=== PATIENT | female | born 1950 | race Caucasian/White ===

== ENCOUNTER 2018-07-27 06:52 | Day surgery (SDC) | payer BC, OTHER ==
[2018-07-25 15:36] VITALS: BMI 27.4
[2018-07-27 07:42] LABS: INR 0.97 (0.83-1.09); PROTHROMBIN TIME (PATIENT) 11.4 SEC (9.7-13.0)
[2018-07-27 07:45] LABS: ACTIVATED PTT 24.9 SECONDS (25.2-36.5)
[2018-07-27] MEDS ORDERED: MIDAZOLAM HCL 2 MG/2 ML SINGLE DOSE VIAL ONE ×2 (07:49)
[2018-07-27] MEDS ORDERED: ROPIVACAINE HCL 0.5% 30ML VIAL ONE (07:51)
[2018-07-27] MEDS ORDERED: DEXAMETHASONE SOD PHOSPHATE/PF 10 MG/ML SDV ONE (07:51)
[2018-07-27] MEDS ORDERED: oxyCODONE HCL 5 MG TABLET PO PRN ×2 (08:01)
[2018-07-27] MEDS ORDERED: ONDANSETRON 4 MG/2 ML VIAL IVPUSH PRN (08:01)
[2018-07-27] MEDS ORDERED: LACTATED RINGERS SOLUTION 1,000 ML IV SCH (08:15)
--- NOTE | 2018-07-27 08:35 | HP ---
Satellite [facility] - Chief Complaint Chief Complaint: left shoulder pain - Past Medical History Allergies/Adverse Reactions: Allergies Allergy/AdvReac Type Severity Reaction Status Date / Time atorvastatin Allergy Intermediate fast Verified 12/21/14 06:53 heartbeat amoxicillin Allergy Verified 07/27/18 07:37 rosuvastatin Allergy "FAST Verified 12/20/14 17:07 HEARTBEAT" - Current Medications Current Medications: Home Medications Medication Instructions Recorded Amlodipine Besylate/Benazepril 1 each PO DAILY 12/20/14 [Lotrel 5-10 mg Capsule] Estrogen,Con/M-Progest Acet 1 each PO DAILY 12/20/14 [Prempro 0.3 mg-1.5 mg Tablet] Multivitamins [Multivit ([facility] 1 tab PO DAILY 12/21/14 Formulary)] Levothyroxine [Synthroid -] 88 mcg PO DAILY 07/25/18 Rosuvastatin Calcium [Crestor] 20 mg PO DAILY 07/25/18 Oxycodone HCl/Acetaminophen 1 - 2 tab PO Q6H #30 tab MDD 6 07/27/18 [Percocet 5-325 mg Tablet] Satellite Physical Exam - Physical Examination Vital Signs: Vital Signs Period Temp Pulse Resp BP Sys/Galloway Pulse Ox Last 24 Hr 98.4 F 84 20 148/72 100 General Appearance: Well Nourished, Well Developed, Alert & Oriented x3 ENT: Clear Lung: Normal air movement Heart: Regular rate & rhythm Extremities: Other (left shoulder- + ttp, decr rom, + neer, + ornelas, + empty can, nvi MRI + rct) Neurological: Intact, Alert, Oriented Satellite Impression/Plan - Impression/Plan Impression: left shoulder rct Operative Procedure: left shoulder arthroscopy with RCXiomara, JESSE, DCE Date to be Performed: 07/27/18
[2018-07-27] MEDS ORDERED: PROPOFOL 20 ML ONE (09:00)
[2018-07-27] MEDS ORDERED: ROCURONIUM BROMIDE 50 MG/5 ML VIAL ONE (09:00)
[2018-07-27] MEDS ORDERED: ceFAZolin SODIUM 1 GM VIAL ONE (09:22)
[2018-07-27] MEDS ORDERED: ceFAZolin SODIUM 1 GM VIAL IVPB ONE (09:30)
[2018-07-27] MEDS ORDERED: NEOSTIGMINE METHYLSULFATE 0.5 MG/ML - 10 ML MDV ONE (10:28)
[2018-07-27] MEDS ORDERED: GLYCOPYRROLATE 0.2 MG/1 ML VIAL ONE (10:28)
--- NOTE | 2018-07-27 10:41 | OP ---
Operative Note - Note: Operative Date: 07/27/18 ([facility]) Pre-Operative Diagnosis: left shoulder rct Operation: left shoulder arthroscopy with RCR, SAD, DCE Implants: arthrex speedbridge, 1 swivelock Post-Operative Diagnosis: Same as Pre-op Surgeon: Joby Strange Neon Sign Servicer: Bill Hill Anesthesiologist/SENIOR AUDIT MANAGER: Frances Berrios Anesthesia: General, Local Specimens Removed: shavings Estimated Blood Loss (mls): 5 Operative Report Dictated: Yes
[2018-07-27] MEDS ORDERED: MEPERIDINE HCL CARPU-JECT 25 MG/1 ML DISP.SYRIN ONE (11:03)
[2018-07-27] MEDS ORDERED: MEPERIDINE HCL CARPU-JECT 25 MG/1 ML DISP.SYRIN IVPUSH PRN (11:13)
--- NOTE | 2018-07-27 11:40 | OP ---
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 POSTOPERATIVE DIAGNOSIS: Left rotator cuff tear and degenerative joint disease of the acromioclavicular joint. PROCEDURE: Arthroscopy, left shoulder, with subacromial decompression, distal clavicle excision, and arthroscopic left rotator cuff repair. SURGICAL ATTENDING: Joby Strange MD SECTION BEAMER: LEROY Espinosa ANESTHESIA: Regional and general. CLOSURE: SpeedBridge anchors and SwiveLock for rotator cuff, 3-0 nylon for skin. ESTIMATED BLOOD LOSS: Negligible. COMPLICATIONS: None. CONDITION: To recovery room in stable condition. DESCRIPTION OF OPERATIVE PROCEDURE: Patient was taken to the operating room on July 27, 2018. A scalene block as well as general anesthesia was administered by the anesthesiologist. IV Kefzol was administered prophylactically prior to the case. Patient was placed in the supine position. The left shoulder was prepped and draped in the usual sterile fashion. First, a diagnostic arthroscopy of the glenohumeral joint was performed. A posterior portal was made 2 fingerbreadths below the acromion with a 15 blade followed by a blunt trocar. The scope was placed in the shoulder, and a circumferential examination of the glenohumeral joint revealed the following: Intact glenoid and humeral head articular cartilage, intact labrum circumferentially. No loose bodies in the axillary pouch. The biceps tendon was frayed, but was intact to its insertion. Subscapularis was intact to its insertion. There was a large rotator cuff tear seen from the articular surface. The fluid was drained from the shoulder, and the trocar was removed. The posterior trocar was redirected in the subacromial space. The accessory lateral portal was then made using 15 blade followed by a blunt trocar, and anterior portal was made at the AC joint. The subacromial space was cleaned of all bursal tissue by using the ArthroCare device. Spur on the undersurface of the acromion was debrided up to the appropriate level gaining sufficient height for the acromion. As patient had significant DJD of the AC joint, the distal clavicle was excised. A john was placed through the AC joint and was used to john off the distal clavicle. Direct visualization in the AC joint revealed that the entire distal clavicle, even the superior portion, was taken. The lateral edge of the acromion was burred as well to make a smooth transition zone. Next, our attention was directed to the rotator cuff. Shaver was used to clean off the bed of the greater tuberosity, and the primitive attempt at healing of the body of the rotator cuff exposing a large rotator cuff tear. The john was used to stimulate bleeding bone on the greater tuberosity. Two anchors were placed in the articular margin, one anteriorly and one posteriorly, and these anchors were preloaded with FiberTape sutures. They were passed in a fanned out position through the rotator cuff and docked in the anterior portal. One anterior limb and one posterior limb were fixated to the greater tuberosity posteriorly, and one anterior limb and one posterior limb were fixated to the greater tuberosity more anteriorly, matting down the rotator cuff to the greater tuberosity. There was a small flap anteriorly, which needed adjuvant fixation. FiberWire suture was placed using the Scorpio device, and then, a SwiveLock was then deployed more laterally fixating that portion of the rotator cuff, as well. All these sutures were cut flush with the bone. Post-fixation, shoulder was taken through a range of motion, had excellent repair and no undue tightness and no impingement on the subacromial space. The fluid was drained. The portals were closed using 3-0 nylon and a sterile pressure dressing, followed by a shoulder immobilizer was applied. Patient awakened from anesthesia and transferred to recovery in stable condition. No complications. Estimated blood loss negligible. Mireya [id number]
[2018-07-27 12:52] VITALS: TEMP 97.9
[2018-07-27 15:34] VITALS: BP 140/88; PULSE 88
--- NOTE | 2018-07-29 17:28 | PATH ---
Surgical Pathology Report Patient Name: MARÍA PHELPS [facility]. Rec. #: [id number] /Age/Gender: 1950 (Age: 67) / F Account: [id number] Location: [facility] [place] SURGICAL Taken: 07/27/2018 Received: 07/27/2018 Reported: 07/29/2018 Physicians: Joby Strange M.D. Specimen(s) Received LEFT SHOULDER SHAVINGS Clinical History Left shoulder tear Final Diagnosis SHOULDER SHAVINGS, LEFT, ARTHROSCOPY, DISTAL CLAVICLE EXCISION, REPAIR OF ROTATOR CUFF: FRAGMENTS OF BENIGN CARTILAGE, SYNOVIUM, BONE, DENSE FIBROCONNECTIVE TISSUE, ADIPOSE TISSUE, AND SKELETAL MUSCLE. Electronically Signed My Langley M.D. Gross Description Received in formalin, labeled "left shoulder shavings," is a 5.0 x 4.3 x 0.8 cm. aggregate of alvarez-yellow soft tissue fragments. A procurement representative portion is submitted in one cassette. /07/28/2018 [facility]07/28/2018
== END 2018-07-27 15:30 | disposition home or self-care (01) ==
LOC: JASU-SURG 06:52
PROVIDERS: ATTEND Orthopaedic Surgery
PROC: 0PBB4ZZ Excision of Left Clavicle, Percutaneous Endoscopic Approach (ICD-10-PCS; 2018-07-27)
PROC: 0RNK4ZZ Release Left Shoulder Joint, Percutaneous Endoscopic Approach (ICD-10-PCS; principal; 2018-07-27 09:00)
PROC: 0LQ24ZZ Repair Left Shoulder Tendon, Percutaneous Endoscopic Approach (ICD-10-PCS; 2018-07-27 09:00)
DX: M75.102 Unspecified rotator cuff tear or rupture of left shoulder, not specified as traumatic (principal); M19.012 Primary osteoarthritis, left shoulder
CPT/HCPCS: 36415; 84703; 85610; 85730; 88304-TC; 94760

== ENCOUNTER 2019-11-22 06:22 | Day surgery (SDC) | payer BC, OTHER ==
[2019-11-21 15:42] VITALS: BMI 29.0
[2019-11-22] MEDS ORDERED: DEXAMETHASONE SOD PHOSPHATE 4 MG/1 ML VIAL ONE (07:20)
[2019-11-22] MEDS ORDERED: PROPOFOL 20 ML ONE (07:20)
[2019-11-22] MEDS ORDERED: LIDOCAINE HCL/PF 2% SDV 5ML VIAL ONE (07:20)
[2019-11-22] MEDS ORDERED: MIDAZOLAM HCL 2 MG/2 ML SINGLE DOSE VIAL ONE (07:20)
[2019-11-22] MEDS ORDERED: SUCCINYLCHOLINE CHLORIDE 200 MG/10 ML SYRINGE ONE (07:20)
[2019-11-22] MEDS ORDERED: LIDOCAINE HCL 1% EPINEPHRINE 1:200,000 30 ML VIAL (PF) ONE (07:45)
--- NOTE | 2019-11-22 07:54 | HP ---
Satellite [facility] - Chief Complaint Chief Complaint: left knee pain - Past Medical History Allergies/Adverse Reactions: Allergies Allergy/AdvReac Type Severity Reaction Status Date / Time atorvastatin Allergy Intermediate fast Verified 11/22/19 07:03 heartbeat amoxicillin Allergy "HIVES" Verified 11/22/19 07:03 rosuvastatin Allergy "FAST Verified 11/22/19 07:03 HEARTBEAT" - Current Medications Current Medications: Home Medications Medication Instructions Recorded Amlodipine Besylate/Benazepril 1 each PO DAILY 12/20/14 [Lotrel 5-10 mg Capsule] Levothyroxine [Synthroid -] 88 mcg PO DAILY 07/25/18 Rosuvastatin Calcium [Crestor] 20 mg PO DAILY 07/25/18 Oxycodone HCl/Acetaminophen 1 tab PO Q6H #15 tablet MDD 4 11/22/19 [Percocet 5-325 mg Tablet] Satellite Physical Exam - Physical Examination Vital Signs: Vital Signs Period Temp Pulse Resp BP Sys/Galloway Pulse Ox Last 24 Hr 97.7 F 78 18 114/80 97 General Appearance: Well Nourished, Well Developed, Alert & Oriented x3 ENT: Clear Lung: Normal air movement Extremities: Other (left knee- + swelling, + ttp, decr rom, + mcmurrays, nvi) Neurological: Intact, Alert, Oriented Satellite Impression/Plan - Impression/Plan Impression: left knee internal derangement Operative Procedure: left knee arthroscopy Date to be Performed: 11/22/19
[2019-11-22] MEDS ORDERED: EPHEDRINE SULFATE/0.9% NACL/PF 50 MG/10 ML SYRINGE NR ONE (08:21)
[2019-11-22] MEDS ORDERED: LIDOCAINE HCL 0.5% EPINEPHRINE 1:200,000 50 ML VIAL IJ ONE (08:24)
[2019-11-22] MEDS ORDERED: BUPIVACAINE HCL/PF 0.5% (5 MG/ML) 30 ML VIAL IJ ONE ×2 (08:36→08:42)
[2019-11-22] MEDS ORDERED: ONDANSETRON 4 MG/2 ML VIAL IVPUSH PRN (08:57)
[2019-11-22] MEDS ORDERED: oxyCODONE HCL 5 MG TABLET PO PRN (08:57)
[2019-11-22] MEDS ORDERED: LACTATED RINGERS SOLUTION 1,000 ML IV SCH (09:00)
--- NOTE | 2019-11-22 10:38 | OP ---
Operative Note - Note: Operative Date: 11/22/19 ([facility]) Pre-Operative Diagnosis: left knee internal derangement Operation: left knee arthroscopy with PMM Post-Operative Diagnosis: Same as Pre-op Surgeon: Joby Strange Anesthesiologist/ASSEMBLER LATCHES [employer] SPRINGS: Gris Rizvi Anesthesia: General, Local Specimens Removed: shavings Estimated Blood Loss (mls): 5
[2019-11-22 12:23] VITALS: BP 113/65; PULSE 86; TEMP 98.1
--- NOTE | 2019-11-22 15:53 | OP ---
DATE OF OPERATION: 11/22/2019 PREOPERATIVE DIAGNOSIS: Internal derangement, left knee. POSTOPERATIVE DIAGNOSIS: Internal derangement, left knee. PROCEDURE: Arthroscopy, left knee; partial medial meniscectomy. SURGICAL ATTENDING: Joby Strange MD ANESTHESIA: General with LMA. CLOSURE: 4-0 nylon. COMPLICATIONS: None. CONDITION: To recovery room in stable condition. DESCRIPTION OF OPERATIVE PROCEDURE: Patient was taken to the operating room on November 22, 2019. General anesthesia with LMA was administered by the anesthesiologist. Left lower extremity was prepped and draped in the usual sterile fashion. The medial and lateral and infrapatellar portal sites were infiltrated with 1% Xylocaine with epinephrine. Both portals were then made with 15 blade followed by blunt trocars. The scope trocar was placed in the lateral inferolateral portal up in suprapatellar pouch. The knee was inflated then with a cocktail of 10 mL of 1% Xylocaine and 10 mL of 0.5% Marcaine and 20 mL of arthroscopic saline. After allowing the anesthetic to sit in the knee for a few minutes, the procedure was performed. The pouch was visualized to be clean. The medial and lateral gutters were visualized to be clean. The undersurface of the patella and trochlea were basically intact. With valgus stress on the knee, the medial compartment was entered. The medial meniscus was found to have a complex tear of its posterior horn. This was debrided back to smooth and stable meniscal tissue using meniscal biter and arthroscopic shaver. The medial femoral condyle was run and found to have slight "crabmeat" which was debrided, and slight changes on the medial tibial plateau as well but otherwise for the most part it was mostly intact. At 90 degrees, the ACL was visualized, probed, found to be intact. In the [id number] position, the lateral compartment was entered. Lateral meniscus was visualized and probed, found to be intact. The lateral femoral condyle was run and found to be intact, as was lateral tibial plateau. The knee was irrigated with copious amounts of irrigation. The portals were closed with 4-0 nylon. Prior to closure, 20 mL of 0.5% Marcaine was infused through the trocar for postoperative analgesia. Sterile pressure dressing was placed over the knee. Patient awakened from anesthesia and transferred to recovery room in stable condition. No complications. Estimated blood loss negligible. JOBY STRANGE M.D. [id number]
--- NOTE | 2019-11-23 16:31 | PATH ---
Surgical Pathology Report Patient Name: MARÍA PHELPS [facility]. Rec. #: [id number] /Age/Gender: 1950 (Age: 69) / F Account: [id number] Location: [facility] SURGICAL Taken: 11/22/2019 Received: 11/22/2019 Reported: 11/23/2019 Physicians: Joby Strange M.D. Specimen(s) Received LEFT KNEE SHAVINGS Clinical History Left knee tear Final Diagnosis KNEE SHAVINGS, LEFT, ARTHROSCOPY: FRAGMENTS OF CARTILAGE, DENSE FIBROCONNECTIVE TISSUE, ADIPOSE TISSUE, AND SYNOVIUM. Electronically Signed My Langley M.D. Gross Description Received in formalin, labeled "left knee shavings," is a 5.8 x 4.4 x 0.5 cm. aggregate of alvarez-yellow soft tissue fragments. A fundraising sale representative portion is submitted in one cassette. /11/22/2019 [place]/11/22/2019
== END 2019-11-22 11:30 | disposition home or self-care (01) ==
LOC: JASU-SURG 06:22
PROVIDERS: ATTEND Orthopaedic Surgery
PROC: 0SBD4ZZ Excision of Left Knee Joint, Percutaneous Endoscopic Approach (ICD-10-PCS; principal; 2019-11-22 08:00)
DX: M23.332 Other meniscus derangements, other medial meniscus, left knee (principal)
CPT/HCPCS: 94760

== ENCOUNTER 2021-05-15 04:43 | Day surgery (SDC) | payer BC, OTHER ==
[2021-05-14 09:24] VITALS: BMI 30.2
[2021-05-15] MEDS ORDERED: CHONDROITIN SU A/HYALUR SOD 1 KIT ONE ×2 (07:05→10:03)
[2021-05-15] MEDS ORDERED: ACETAMINOPHEN 325 MG TABLET (FP) PO PRN (07:12)
[2021-05-15] MEDS ORDERED: CIPROFLOXACIN 0.3% EYE DROPS 5 ML BOTTLE ONE (07:38)
[2021-05-15] MEDS ORDERED: TROPICAMIDE 1% OPHTH SOLN 15 ML BOTTLE ONE (07:38)
[2021-05-15] MEDS: CIPROFLOXACIN HCL 0.3% OPHTH 2.5ML BOTTLE OP SCH ×3 (07:45→08:15)
[2021-05-15] MEDS: PHENYLEPHRINE 2.5% OPHTH SOLN 15 ML BOTTLE OP SCH ×3 (08:00→08:10)
[2021-05-15] MEDS: DICLOFENAC SODIUM 0.1% OPHTHALMIC 2.5ML BOTTLE ONE ×3 (08:00→08:10)
[2021-05-15] MEDS: KETOROLAC TROMETHAMINE 0.5% EYE DROP 1 DROP DROPS OP SCH ×3 (08:00→08:10)
[2021-05-15] MEDS: TROPICAMIDE 1% OPHTH SOLN 15 ML BOTTLE OP SCH ×3 (08:00→08:10)
[2021-05-15] MEDS ORDERED: TETRACAINE 0.5% OPHTH SOLN 2 ML BOTTLE OD ONE ×2 (08:08→09:46)
[2021-05-15] MEDS ORDERED: LIDOCAINE HCL 1% PRESERVATIVE FREE - 30ML VIAL IO ONE ×2 (08:09→09:57)
[2021-05-15] MEDS ORDERED: POVIDONE-IODINE 5% OPHTHALMIC PREP 30 ML SOLUTION OD ONE ×2 (08:09→09:47)
[2021-05-15] MEDS ORDERED: BSS (NA/CA/MG/K) BALANCED SALT SOLUTION OPHTH SOLN 15 ML BOTTLE OD ONE ×2 (08:10→09:59)
[2021-05-15] MEDS ORDERED: CHONDROITIN SU A/HYALUR SOD 1 KIT IO ONE ×2 (08:11→09:59)
[2021-05-15] MEDS ORDERED: EPINEPHrine/PF 1 MG/1 ML (1:1,000) AMPULE SQ ONE ×2 (08:11→10:05)
[2021-05-15] MEDS ORDERED: TOBRAMYCIN/DEXAMETHASONE OPHTH. OINTMENT 1 TUBE OD ONE ×2 (09:33→10:18)
[2021-05-15] MEDS ORDERED: MIDAZOLAM HCL 2 MG/2 ML SINGLE DOSE VIAL ONE (09:48)
[2021-05-15] MEDS ORDERED: ONDANSETRON 4 MG/2 ML VIAL IVPUSH PRN (10:29)
[2021-05-15] MEDS ORDERED: LACTATED RINGERS SOLUTION 1,000 ML IV SCH (10:30)
[2021-05-15 11:00] VITALS: PULSE 71
[2021-05-15 11:40] VITALS: BP 120/70; TEMP 97.7
== END 2021-05-15 11:30 | disposition home or self-care (01) ==
LOC: JASU-SURG 04:43
PROVIDERS: ATTEND Ophthalmology
PROC: 08RJ3JZ Replacement of Right Lens with Synthetic Substitute, Percutaneous Approach (ICD-10-PCS; principal; 2021-05-15 09:30)
DX: H25.11 Age-related nuclear cataract, right eye (principal)

== ENCOUNTER 2022-03-19 20:35 | Observation (INO) | payer OTHER, BC ==
[2022-03-19] MEDS ORDERED: ACETAMINOPHEN 1000 MG/100 ML BAG IVPB ONE (21:22)
[2022-03-19] MEDS ORDERED: LACTATED RINGERS SOLUTION 1000 ML INFUS.BAG IV ONE (21:22)
[2022-03-19] MEDS ORDERED: ACETAMINOPHEN INJECTION 100 ML IVPB ONE (21:48)
[2022-03-19 22:05] LABS: BASO % 0.7 % (0-2.0); EOS % 5.3 % (0-4.5); HEMATOCRIT 39.5 % (32.4-45.2); HEMOGLOBIN 13.8 GM/dL (10.7-15.3); LYMPH % 36.7 % (8-40); MCH 31.8 pg (25.7-33.7); MCHC 34.9 g/dl (32.0-36.0); MEAN CELL VOLUME 91.2 fl (80-96); MEAN PLT VOLUME 7.9 fl (7.5-11.1); MONO % 7.4 % (3.8-10.2); NEUT % 49.9 % (42.8-82.8); PLATELET COUNT 190 10^3/uL (134-434); RBC 4.34 M/mm3 (3.60-5.2); RDW 12.7 % (11.6-15.6); WHITE BLOOD COUNT 7.2 K/mm3 (4.0-10.0)
[2022-03-19 22:11] LABS: INR 0.96 (0.83-1.09)
[2022-03-19 22:27] LABS: CHLORIDE 103 mmol/L (98-107); SODIUM 140 mmol/L (136-145)
[2022-03-19 22:29] LABS: CALCIUM 9.5 mg/dL (8.5-10.1)
[2022-03-19 22:30] LABS: ALBUMIN 4.2 g/dl (3.4-5.0); ANION GAP 8 MMOL/L (8-16); BLOOD UREA NITROGEN 17.2 mg/dL (7-18); CO2 29 mmol/L (21-32); GLUCOSE,RANDOM 118 mg/dL (74-106)
[2022-03-19 22:33] LABS: CREATININE 1.1 mg/dL (0.55-1.3); SGOT/AST 24 U/L (15-37); SGPT/ALT 24 U/L (13-61)
[2022-03-19 22:35] LABS: BILIRUBIN,TOTAL 0.4 mg/dL (0.2-1); TOT PROT 7.5 g/dl (6.4-8.2)
[2022-03-19 22:36] LABS: ALK PHOS 70 U/L (45-117)
[2022-03-19] MEDS ORDERED: ASPIRIN 81 MG CHEWABLE TABLETS PO ONE (23:08)
[2022-03-19] MEDS ORDERED: ASPIRIN 81 MG CHEWABLE TABLETS ONE (23:28)
[2022-03-20] MEDS: LEVOTHYROXINE NA 88 MCG TABLET (FP) PO SCH (07:05)
[2022-03-20] MEDS: ISOSORBIDE MONONITRATE 30 MG TAB.SR.24H (FP) PO SCH (09:57)
[2022-03-20] MEDS: CLOPIDOGREL BISULFATE 75 MG TABLET (FP) PO SCH (09:58)
[2022-03-20] MEDS: LISINOPRIL 10 MG TABLET PO SCH (09:58)
[2022-03-20] MEDS: ASPIRIN 81 MG CHEWABLE TABLETS PO SCH (09:58)
[2022-03-20] MEDS: amLODIPine BESYLATE 5 MG TABLET (FP) PO SCH (09:58)
[2022-03-20] MEDS ORDERED: PATIENT'S OWN MEDICATION (NON-FORMULARY) (Amlodipine Besylate/Benazepril [Lotrel 5-10 Mg C PO SCH (10:00)
[2022-03-20 14:05] LABS: BASO % 0.6 % (0-2.0); EOS % 4.7 % (0-4.5); HEMATOCRIT 39.5 % (32.4-45.2); HEMOGLOBIN 13.2 GM/dL (10.7-15.3); LYMPH % 31.5 % (8-40); MCH 30.8 pg (25.7-33.7); MCHC 33.4 g/dl (32.0-36.0); MEAN CELL VOLUME 92.5 fl (80-96); MONO % 5.4 % (3.8-10.2); NEUT % 57.8 % (42.8-82.8); PLATELET COUNT 192 10^3/uL (134-434); RBC 4.27 M/mm3 (3.60-5.2); RDW 12.5 % (11.6-15.6); WHITE BLOOD COUNT 6.5 K/mm3 (4.0-10.0)
[2022-03-20 14:41] LABS: CHLORIDE 104 mmol/L (98-107); SODIUM 140 mmol/L (136-145)
[2022-03-20 14:45] LABS: ANION GAP 7 MMOL/L (8-16); BLOOD UREA NITROGEN 16.1 mg/dL (7-18); CALCIUM 9.3 mg/dL (8.5-10.1); CO2 28 mmol/L (21-32); GLUCOSE,RANDOM 132 mg/dL (74-106)
[2022-03-20 14:46] LABS: ALBUMIN 3.8 g/dl (3.4-5.0)
[2022-03-20 14:48] LABS: CHOLESTEROL 147 mg/dL (50-200); CREATININE 1.1 mg/dL (0.55-1.3); SGOT/AST 20 U/L (15-37); SGPT/ALT 21 U/L (13-61)
[2022-03-20 14:49] LABS: TRIGLYCERIDES 211 mg/dL (0-150)
[2022-03-20 14:50] LABS: BILIRUBIN,TOTAL 0.5 mg/dL (0.2-1); LDL CHOLESTEROL (ONLY SJRH) 70 mg/dL (5-100); TOT PROT 6.8 g/dl (6.4-8.2)
[2022-03-20 14:51] LABS: ALK PHOS 64 U/L (45-117); HDL CHOLESTEROL 51 mg/dL (40-60)
[2022-03-20 18:58] VITALS: BMI 29.8
[2022-03-20] MEDS ORDERED: ACETAMINOPHEN 325 MG TABLET (FP) PO PRN (20:05)
[2022-03-20] MEDS ORDERED: ROSUVASTATIN CA 20 MG TABLET PO SCH (22:00)
[2022-03-21] MEDS: LEVOTHYROXINE NA 88 MCG TABLET (FP) PO SCH (06:34)
[2022-03-21] MEDS: ISOSORBIDE MONONITRATE 30 MG TAB.SR.24H (FP) PO SCH (10:24)
[2022-03-21] MEDS: LISINOPRIL 10 MG TABLET PO SCH (10:26)
[2022-03-21] MEDS: CLOPIDOGREL BISULFATE 75 MG TABLET (FP) PO SCH (10:26)
[2022-03-21] MEDS: ASPIRIN 81 MG CHEWABLE TABLETS PO SCH (10:26)
[2022-03-21] MEDS: amLODIPine BESYLATE 5 MG TABLET (FP) PO SCH (10:26)
[2022-03-21] MEDS ORDERED: ISOSORBIDE MONONITRATE 30 MG TAB.SR.24H (FP) PO SCH (11:39)
[2022-03-21] MEDS ORDERED: METOPROLOL TARTRATE 25 MG TABLET (FP) PO SCH ×2 (11:45)
[2022-03-21 15:12] VITALS: BP 121/79; PULSE 72; TEMP 98.4
== END 2022-03-21 16:23 | disposition home or self-care (01) ==
LOC: JER 20:35 → JERBED 23:12 → INTOOBSV 23:12 → J4W 03-20 06:43
PROVIDERS: ADMIT Hospitalist; ATTEND Internal Medicine
PROC: 3E033NZ Introduction of Analgesics, Hypnotics, Sedatives into Peripheral Vein, Percutaneous Approach (ICD-10-PCS; principal; 2022-03-19)
DX: I25.10 Atherosclerotic heart disease of native coronary artery without angina pectoris (principal); I11.9 Hypertensive heart disease without heart failure; E78.5 Hyperlipidemia, unspecified; E03.9 Hypothyroidism, unspecified; Z95.5 Presence of coronary angioplasty implant and graft; R07.9 Chest pain, unspecified; Z20.822 Contact with and (suspected) exposure to COVID-19; Z29.8 Encounter for other specified prophylactic measures; Z88.8 Allergy status to other drugs, medicaments and biological substances
CPT/HCPCS: 0241U-QW; 36415; 71045-TC-FY; 80053; 80061; 84484; 85025; 85610; 85730; 93005; 93010; 93306-TC; 96374; 99285-25; G0378